=== PATIENT | female | born 2000 | race Caucasian/White ===

== ENCOUNTER → 2020-12-07 16:30 | Outpatient (CLI) | payer OTHER, SELFPAY ==
--- NOTE | 2020-12-07 16:33 | DI.RAD.S_ITS ---
PROCEDURE: XR FOOT LT MIN 3V INDICATIONS: Injury to left great toe, rule out fracture TECHNIQUE: 3 views of the foot were acquired. COMPARISON: None. FINDINGS: Bones: No fractures or dislocations. No suspicious bony lesions. Soft tissues: No tibiotalar joint effusion. Achilles tendon appears normal. IMPRESSION: No fracture. No osseous lesion. If symptoms and/or clinical suspicion for pathology persists, further assessment with repeat radiographs (7-10 days) or advanced imaging (e.g. CT, MRI or bone scan) should be considered. Dictated by: Viviane Tejada MD, PhD on 12/07/2020 at 17:13 Approved by: Viviane Tejada MD, PhD on 12/07/2020 at 17:14
== END ==
PROVIDERS: PCP Family Medicine; Referring Provider Physician Assistant; Visit Provider Physician Assistant
DX: S99.922A Unspecified injury of left foot, initial encounter (principal); X58.XXXA Exposure to other specified factors, initial encounter
CPT/HCPCS: 73630

== ENCOUNTER → 2021-01-01 16:07 | Outpatient (CLI) | payer OTHER, SELFPAY ==
--- NOTE | 2021-01-01 16:09 | DI.RAD.S_ITS ---
PROCEDURE: XR HIP W PEL IF DONE CHENG MIN 4V INDICATIONS: worsening bilateral hip pain TECHNIQUE: AP pelvis with lateral view(s) of the both hip(s). COMPARISON: None. FINDINGS: Bones: No fractures or dislocations. Pelvic ring appears intact. No suspicious bony lesions. Suspect transitional anatomy in the lower lumbar spine/sacrum. Soft tissues: The visualized bowel gas pattern is normal. No suspicious soft tissue calcifications. There is a IUD in uterus. Moderate amount of stool in colon. IMPRESSION: 1. Normal hips bilaterally. 2. Suspect transitional anatomy of the lower lumbar spine and sacrum. If clinically indicated, lumbar spine x-ray may be helpful. Dictated by: Wei Payne M.D. on 01/01/2021 at 16:52 Approved by: Wei Payne M.D. on 01/01/2021 at 16:54
[2021-01-01 17:25] LABS: Add Manual Diff / Slide Review NO; Basophils Absolute Auto 100 /uL (0-100); Basophils Percent Auto 1.1 % (0-2); Eosinophils Absolute Auto 100 /uL (0-450); Eosinophils Percent Auto 1.2 % (2-4); Hematocrit 41.6 % (36-46); Hemoglobin 14.3 g/dL (12.0-16.0); Lymphocytes Absolute Auto 1700 /uL (1100-4500); Lymphocytes Percent Auto 27.8 % (25-40); Mean Corpuscular HGB Conc 34.3 % (30-36); Mean Corpuscular Hemoglobin 32.1 PG (26-34); Mean Corpuscular Volume 93.6 fL (80-100); Monocytes Absolute Auto 500 /uL (0-900); Monocytes Percent Auto 7.9 % (3-14); Neutrophils Absolute Auto 3800 /uL (1500-7000); Platelet Count 199 X10^3/uL (150-400); Red Blood Cell Count 4.45 X10^6/uL (4.0-5.2); Red Cell Distribution Width 11.9 % (11.6-14.8); White Blood Cell Count 6.1 X10^3/uL (4.5-11.0)
[2021-01-01 17:48] LABS: Alanine Aminotransferase 9 IU/L (<35); Albumin 4.7 g/dL (3.5-5.0); Alkaline Phosphatase 82 U/L (38-126); Aspartate Aminotransferase 31 IU/L (14-36); BUN Creatinine Ratio 27.8 (6-22); Bilirubin Total 0.3 mg/dL (0.2-1.3); Blood Urea Nitrogen 15 mg/dL (7-17); Calcium 9.5 mg/dL (8.4-10.2); Carbon Dioxide 29 mmol/L (22-32); Chloride 100 mmol/L (98-107); Estimated Glomerular Filt Rate > 60.0 mL/min (>60); Globulin 2.4 g/dL (1.7-4.1); Glucose 78 mg/dL (70-100); HEMOLYSIS < 15 (0-50); Sodium 138 mmol/L (137-145); Total Protein 7.1 g/dL (6.3-8.2)
[2021-01-01 17:49] LABS: C-Reactive Protein Quant < 0.5 mg/dL (<1.0); Rheumatoid Factor < 8.6 IU/mL (<12.0)
[2021-01-01 18:33] LABS: TSH w/ Reflex to FT4 3.29 uIU/mL (0.47-4.68)
== END ==
PROVIDERS: PCP Family Medicine; Referring Provider Family Medicine; Visit Provider Family Medicine
DX: M25.559 Pain in unspecified hip (principal); M25.50 Pain in unspecified joint
CPT/HCPCS: 36415; 73522; 80053; 84443; 85025; 86140; 86430

== ENCOUNTER → 2021-01-31 15:11 | Outpatient (CLI) | payer OTHER, SELFPAY ==
--- NOTE | 2021-01-31 15:13 | DI.US.S_ITS ---
PROCEDURE: US PELVIC COMPLETE INDICATIONS: ABNORMAL BLEEDING AND IUD PLACEMENT TECHNIQUE: Real-time scanning was performed of the pelvic organs, with image documentation. Additional endovaginal scanning was necessary due to incomplete visualization of the adnexal and endometrial structures by transabdominal scanning. COMPARISON: None. FINDINGS: Uterus: Uterus is normal in size at 2.9 x 4.8 x 7.8 cm. The endometrium measures 3.7 mm in combined thickness. IUD appears position within the fundal portion of the endometrial canal. Ovaries: The right ovary measures 4.7 x 2.1 x 2.1 cm and the left measures 3.7 x 3.0 x 1.6 cm. Other: No pathologic free abdominal or pelvic fluid. IMPRESSION: No endometrial mass is seen. IUD within the fundal portion of the endometrial canal. No ovarian cystic or solid mass is found. Dictated by: Flakito Wang M.D. on 01/31/2021 at 17:26 Approved by: Flakito Wang M.D. on 01/31/2021 at 17:27
== END ==
PROVIDERS: PCP Family Medicine; Referring Provider Family Medicine; Visit Provider Family Medicine
DX: N93.9 Abnormal uterine and vaginal bleeding, unspecified (principal); N94.89 Other specified conditions associated with female genital organs and menstrual cycle; Z30.431 Encounter for routine checking of intrauterine contraceptive device
CPT/HCPCS: 76830; 76856

== ENCOUNTER → 2021-02-16 10:26 | Outpatient (CLI) | payer OTHER, SELFPAY ==
[2021-02-16 11:27] LABS: Free T3, Triiodothyronine Free 3.23 pg/mL (2.77-5.27); Free T4, Direct Thyroxine 0.78 ng/dL (0.78-2.19)
[2021-02-16 11:41] LABS: Thyroid Stimulating Hormone 0.373 uIU/mL (0.47-4.68)
[2021-02-16 11:42] LABS: Cortisol Random 7.54 ug/dL
[2021-02-17 09:45] LABS: Thyroid Peroxidase Antibodies 11 IU/mL (0-34)
[2021-02-21 08:13] LABS: HLA B27 Negative (.)
== END ==
PROVIDERS: PCP Family Medicine; Referring Provider Family Medicine; Visit Provider Family Medicine
DX: R53.83 Other fatigue (principal); Z83.49 Family history of other endocrine, nutritional and metabolic diseases; M54.9 Dorsalgia, unspecified
CPT/HCPCS: 36415; 81374; 82533; 82627; 84439; 84443; 84481; 86376

== ENCOUNTER → 2021-04-01 16:29 | Outpatient (CLI) | payer OTHER, SELFPAY ==
[2021-04-01 18:59] LABS: Thyroid Stimulating Hormone 1.63 uIU/mL (0.47-4.68)
== END ==
PROVIDERS: PCP Family Medicine; Referring Provider Family Medicine; Visit Provider Family Medicine
DX: E05.90 Thyrotoxicosis, unspecified without thyrotoxic crisis or storm (principal)
CPT/HCPCS: 36415; 84443

== ENCOUNTER → 2021-10-14 07:27 | Outpatient (CLI) | payer OTHER, SELFPAY ==
[2021-10-14 08:07] LABS: COVID19 -Nasal RAPID POSITIVE (Negative)
== END ==
PROVIDERS: PCP Family Medicine; Visit Provider Physician Assistant
DX: Z20.822 Contact with and (suspected) exposure to COVID-19 (principal); J02.9 Acute pharyngitis, unspecified
CPT/HCPCS: 87070; 87635